=== PATIENT | female | born 1965 | race Caucasian/White ===

== ENCOUNTER 2017-01-03 12:19 | Emergency (ER) | payer OTHER ==
[~2017-01-03] VITALS: Ht 154.9 cm; Wt 86.2 kg
[~2017-01-03 12:19] MED LIST: ATORVASTATIN CA40 MG PO; CIPRO500 M1 PO; CIPRODEX 0.3%-7.5 ML OTIC; CLONAZEPAM1 MG PO; FLEXERIL10 MG PO; FLUOXETINE HCL40 M1 PO; HYDROCODONE BIT1 T13 PO; LEVOTHYROXINE125 MCG PO; LIOTHYRONINE S25 MCG PO; PERCOCET 325 MG1 TA2 PO; PYRIDIUM100 M1 PO; ZITHROMAX250 M2 PO
[2017-01-03 12:31] VITALS: BP 134/96
[2017-01-03] MEDS ORDERED: CLONAZEPAM2 M2 PO (12:40)
--- NOTE | 2017-01-03 12:41 | ED GENERAL ADULT ---
History of Present Illness General Chief Complaint: General Adult Stated Complaint: MEDICATION REFILL Source: patient Exam Limitations: no limitations Vital Signs & Intake/Output Vital Signs & Intake/Output Vital Signs Date Time Temp Pulse Resp B/P Pulse O2 O2 Flow FiO2 Ox Delivery Rate 01/03 1231 134/96 01/03 1229 96.5 94 20 158/100 98 Room Air Room Air Allergies Coded Allergies: NO KNOWN ALLERGIES (07/14/16) No Known Drug Allergies (07/14/16) Reconcile Medications Atorvastatin Calcium (Lipitor) 40 MG TABLET 1 TAB PO DAILY CHOLESTEROL ( Reported) Azithromycin (Zithromax) 250 MG TABLET 1 DP PO AD rash 2 the first day followed by 1 for days 2-5 Clonazepam 1 MG TABLET 1 TAB PO QPM PRN ANXIETY (Reported) Clonazepam 2 MG TABLET 0.5 TAB PO TID ANXIETY CYCLOBENZAPRINE HCL (Flexeril) 10 MG TABLET 1 TAB PO TID MUSCLE SPASM Fluoxetine HCl 40 MG CAPSULE 1 CAP PO QAM MENTAL HEALTH (Reported) Levothyroxine Sodium 125 MCG TABLET 1 TAB PO DAILY AC THYROID (Reported) Liothyronine Sodium 25 MCG TABLET 1 TAB PO DAILY THYROID (Reported) OXYCODONE HCL/ACETAMINOPHEN (Percocet 5-325 MG Tablet) 325 MG/5 MG TAB 1-2 TAB PO Q4-6 PRN PRN PAIN Triage Note: PT TO ED S/P "CALLED MY DR, DR MAYFIELD FOR MY CLONAZAPAM 1MG 3 TIMES DAILY, THEY GAVE MY NEW MEDS BUT THEY MADE ME CRAZY SO I CALLED THEM BACK AND THEY SENT ME HERE". Triage Nurses Notes Reviewed? yes Onset: Abrupt Duration: day(s):, constant Timing: recent history HPI: 51-year-old female comes into emergency room for a refill on her clonazepam. Patient reports that she was taken off of this medication abruptly by her primary care doctor who told her she he can no longer prescribe the medication. Patient was started on gabapentin and hydroxyzine. Patient reports that she's been feeling shaky and sweaty at times not feeling her normal self. Denies any SI or HI. Denies any chest pain or shortness of breath. Patient reports that she felt like her heart rate had decreased the other day. Patient reports that she's been on this medication for 16 years. Past History Travel History Traveled to [place] past 21 day No Medical History Any Pertinent Medical History? see below for history Neurological: NONE EENT: NONE Cardiovascular: NONE Respiratory: NONE Gastrointestinal: NONE Hepatic: NONE Renal: NONE Musculoskeletal: NONE Psychiatric: depression Endocrine: hypothyroidism Blood Disorders: NONE Cancer(s): NONE HOSPICE COMMUNITY LIAISON/Reproductive: NONE Surgical History Surgical History: non-contributory Psychosocial History What is your primary language Mohawk Tobacco Use: Never used ETOH Use: occasional use Illicit Drug Use: denies illicit drug use Family History Hx Contributory? No Review of Systems Review of Systems Constitutional: Reports: no symptoms. EENTM: Reports: no symptoms. Respiratory: Reports: no symptoms. Cardiovascular: Reports: no symptoms. GI: Reports: no symptoms. Genitourinary: Reports: no symptoms. Musculoskeletal: Reports: no symptoms. Skin: Reports: no symptoms. Neurological/Psychological: Reports: no symptoms. Hematologic/Endocrine: Reports: no symptoms. Immunologic/Allergic: Reports: no symptoms. All Other Systems: Reviewed and Negative Physical Exam Physical Exam General Appearance: well developed/nourished, no apparent distress, alert, awake Head: atraumatic, normal appearance Eyes: Bilateral: normal appearance, EOMI. Ears, Nose, Throat: normal pharynx, normal ENT inspection Neck: normal inspection, full range of motion Respiratory: normal breath sounds, no respiratory distress Cardiovascular: regular rate/rhythm Back: normal inspection Extremities: normal inspection, normal range of motion Neurologic/Psych: awake, alert, oriented x 3, normal gait, normal mood/affect Skin: intact, normal color Core Measures ACS in differential dx? No CVA/TIA Diagnosis: No Severe Sepsis Present: No Septic Shock Present: No Progress Differential Diagnoses I considered the following diagnoses in my evaluation of the patient: Benzodiazepine withdrawal, anxiety, depression, bipolar, cardiac arrhythmia, Plan of Care: 01/03/2017 12:50:33 PM Patient was offered further evaluation with EKG and blood work but declined. Patient just wants a refill on her medication. Symptoms are likely related to abrupt discontinuation of her benzodiazepines or could be medication side effect from the gabapentin or hydroxyzine. Exam was within normal limits. Patient clinically looks well. Nontoxic-appearing upon discharge. Patient does not want to do any further evaluation at this time is just here for medication refill. Initial ED EKG: none Departure Departure Disposition: HOME OR SELF CARE Condition: Stable Clinical Impression Primary Impression: Medication refill Referrals: ARIANA LOAIZA,MARIO ALBERTO Doran (PCP/Family) Additional Instructions: Take clonazepam as prescribed. Follow-up with your primary care doctor. Follow -up with new psychiatrist. Return if any other concerns worsening symptoms. Please go over all results of today's visit with your primary care doctor. Contact your primary care doctor to let them know you were here in the emergency room. There may be nonspecific findings which may not be related to your visit today here in the emergency room but may require further evaluation and chronic monitoring by your primary care doctor. If you had a laceration today the chance of foreign body always remains. You should follow-up with your primary care doctor for recheck in 3-5 days for a wound check. If you had an x-ray done there is a chance that a fracture could have been missed on initial read and you should follow-up with your primary care doctor for repeat x-rays if symptoms persist. If your blood pressure was elevated here in the emergency room please have rechecked by her primary care doctor within the next 48 hours by your primary care doctor. If you were prescribed a narcotic here in the emergency room or any type of controlled substances you're not allowed to drive while taking this medication or operate any type of heavy machinery. Narcotics can make you feel lightheaded dizziness nausea and can cause constipation. You may need to pick up driver a stool softener. Thank you for choosing [facility] emergency room. Please return to the emergency room immediately if you have any other concerns worsening of symptoms. Departure Forms: Customer Survey General Discharge Information Prescriptions: Current Visit Scripts Clonazepam 0.5 TAB PO TID #15 TAB Critical Care Note Critical Care Note Critical Care Time: non-applicable
== END 2017-01-03 12:49 ==
LOC: ERH 12:19
DX: Z76.0 Encounter for issue of repeat prescription (principal)
CPT/HCPCS: 99281

== ENCOUNTER 2017-01-15 13:24 | Emergency (ER) | payer OTHER ==
[~2017-01-15] VITALS: Ht 154.9 cm; Wt 86.2 kg
[~2017-01-15 13:24] MED LIST changes: +CLONAZEPAM2 M2 PO
[2017-01-15 13:26] VITALS: BP 155/91
--- NOTE | 2017-01-15 13:31 | ED GENERAL ADULT ---
History of Present Illness General Chief Complaint: General Adult Stated Complaint: MED REFILL Source: patient, old records Exam Limitations: no limitations Vital Signs & Intake/Output Vital Signs & Intake/Output Vital Signs Date Time Temp Pulse Resp B/P Pulse O2 O2 Flow FiO2 Ox Delivery Rate 01/15 1326 96.1 97 16 155/91 98 Room Air Allergies Coded Allergies: NO KNOWN ALLERGIES (07/14/16) No Known Drug Allergies (07/14/16) Reconcile Medications Atorvastatin Calcium (Lipitor) 40 MG TABLET 1 TAB PO DAILY CHOLESTEROL ( Reported) Azithromycin (Zithromax) 250 MG TABLET 1 DP PO AD rash 2 the first day followed by 1 for days 2-5 Clonazepam 1 MG TABLET 1 TAB PO QPM PRN ANXIETY (Reported) Clonazepam 2 MG TABLET 0.5 TAB PO TID ANXIETY Clonazepam 1 MG TABLET 1 TAB PO Q12 PRN anxiety CYCLOBENZAPRINE HCL (Flexeril) 10 MG TABLET 1 TAB PO TID MUSCLE SPASM Fluoxetine HCl 40 MG CAPSULE 1 CAP PO QAM MENTAL HEALTH (Reported) Levothyroxine Sodium 125 MCG TABLET 1 TAB PO DAILY AC THYROID (Reported) Liothyronine Sodium 25 MCG TABLET 1 TAB PO DAILY THYROID (Reported) OXYCODONE HCL/ACETAMINOPHEN (Percocet 5-325 MG Tablet) 325 MG/5 MG TAB 1-2 TAB PO Q4-6 PRN PRN PAIN Triage Note: 51 Y/O FEMALE REQUESTING REFILL OF CLONAZEPAM 2MG. STATES SHE HAS F/U WITH PSYCH ON 01/21/17. Triage Nurses Notes Reviewed? yes HPI: Patient is a 51-year-old female presents requesting a refill of her clonazepam. Patient reports that she had been on clonazepam for approximately 17 years was initially receiving the prescription from a [employer] and service director then was receiving the prescription from her primary care physician. Last month she called her primary doctor for her refill and was told that they could no longer write the prescription for her. Patient was tried on 4 different medications but reports that she was feeling worse with feeling of heart palpitations, increasing anxiety, restlessness. Patient was unsure if she was going through withdrawal or having medication side effects. Patient was seen in the emergency department approximately 2 weeks ago and prescribed 2 mg tabs of clonazepam and instructed to take half a tab 3 times a day as needed for anxiety. Patient reports this helped her symptoms. Patient has a follow-up appointment with Dr. Caldera on January 21 for intake for psychiatric care. Past History Travel History Traveled to [place] past 21 day No Medical History Any Pertinent Medical History? see below for history Neurological: NONE EENT: NONE Cardiovascular: NONE Respiratory: NONE Gastrointestinal: NONE Hepatic: NONE Renal: NONE Musculoskeletal: NONE Psychiatric: anxiety, depression Endocrine: hypothyroidism Blood Disorders: NONE Cancer(s): NONE PHARM SPEC/Reproductive: NONE Surgical History Surgical History: non-contributory Psychosocial History What is your primary language Kiswahili Tobacco Use: Quit >30 days ago Family History Hx Contributory? No Review of Systems Review of Systems Constitutional: Reports: no symptoms. Cardiovascular: Reports: no symptoms. GI: Reports: no symptoms. Neurological/Psychological: Reports: see HPI, anxiety. Hematologic/Endocrine: Reports: no symptoms. Immunologic/Allergic: Reports: no symptoms. Physical Exam Physical Exam General Appearance: well developed/nourished, alert, awake Head: atraumatic, normal appearance Eyes: Bilateral: normal appearance, PERRL, EOMI. Ears, Nose, Throat: normal pharynx, normal ENT inspection, hearing grossly normal Neck: normal inspection, supple, full range of motion Respiratory: normal breath sounds, no respiratory distress, lungs clear Cardiovascular: regular rate/rhythm Back: normal range of motion Neurologic/Psych: no motor/sensory deficits, awake, alert, oriented x 3, normal gait Skin: intact, normal color, warm/dry Core Measures ACS in differential dx? No CVA/TIA Diagnosis: No Severe Sepsis Present: No Septic Shock Present: No Progress Differential Diagnoses I considered the following diagnoses in my evaluation of the patient: anxiety, depression, drug seeking Plan of Care: Reviewed CTPMP: patient was chronically being prescribed 1mg Clonazepam tabs, 60 tabs per month. Patient reported to me that she was on Clonazepam 3 times a day. Will provide prescription for 1mg twice a day for 10 days while patient is awaiting intake to psychiatry Initial ED EKG: none Departure Departure Time of Disposition: 1344 Disposition: HOME OR SELF CARE Condition: Stable Clinical Impression Primary Impression: Medication refill Referrals: ARIANA LOAIZA,MARIO ALBERTO Doran (PCP/Family) Additional Instructions: Follow up with Dr. Caldera on January 21 for your intake appointment as previously scheduled. Return to the ER if worsening of symptoms. Departure Forms: Customer Survey General Discharge Information Prescriptions: Current Visit Scripts Clonazepam 1 TAB PO Q12 PRN anxiety #20 TAB Critical Care Note Critical Care Note Critical Care Time: non-applicable
[2017-01-15] MEDS ORDERED: CLONAZEPAM1 M2 PO (13:45)
== END 2017-01-15 14:06 ==
LOC: ERH 13:24
DX: Z76.0 Encounter for issue of repeat prescription (principal); F41.8 Other specified anxiety disorders
CPT/HCPCS: 99281

== ENCOUNTER 2018-02-09 19:27 | Emergency (ER) | payer OTHER ==
[~2018-02-09] VITALS: Ht 157.5 cm; Wt 81.6 kg
[~2018-02-09 19:27] MED LIST changes: +CLONAZEPAM1 M2 PO
--- NOTE | 2018-02-09 19:48 | ED SKIN/ALLERGY COMPLAINT ---
History of Present Illness General Chief Complaint: Animal/Insect Bite Stated Complaint: PT HAS A TICK HEAD IN HER STOMACH Source: patient Exam Limitations: no limitations Vital Signs & Intake/Output Vital Signs & Intake/Output Vital Signs Date Time Temp Pulse Resp B/P B/P Pulse O2 O2 Flow FiO2 Mean Ox Delivery Rate 02/10 2112 98.0 91 18 99 Room Air 02/10 2104 175/93 02/09 2018 180/110 02/09 1949 98.1 90 16 180/110 97 Room Air Allergies Coded Allergies: No Known Allergies (02/09/18) Reconcile Medications Atorvastatin Calcium (Lipitor) 40 MG TABLET 1 TAB PO DAILY CHOLESTEROL ( Reported) Azithromycin (Zithromax) 250 MG TABLET 1 DP PO AD rash 2 the first day followed by 1 for days 2-5 Clonazepam 1 MG TABLET 1 TAB PO QPM PRN ANXIETY (Reported) Clonazepam 2 MG TABLET 0.5 TAB PO TID ANXIETY Clonazepam 1 MG TABLET 1 TAB PO Q12 PRN anxiety CYCLOBENZAPRINE HCL (Flexeril) 10 MG TABLET 1 TAB PO TID MUSCLE SPASM Fluoxetine HCl 40 MG CAPSULE 1 CAP PO QAM MENTAL HEALTH (Reported) Levothyroxine Sodium 125 MCG TABLET 1 TAB PO DAILY AC THYROID (Reported) Liothyronine Sodium 25 MCG TABLET 1 TAB PO DAILY THYROID (Reported) Losartan Potassium (Cozaar) (Unknown Strength) TABLET (Unknown Dose) HTN ( Reported) OXYCODONE HCL/ACETAMINOPHEN (Percocet 5-325 MG Tablet) 325 MG/5 MG TAB 1-2 TAB PO Q4-6 PRN PRN PAIN Triage Note: PT STATES THAT SHE HAS A TICK IN HER STOMACH. [facility]OWN [facility] AT [facility] TO EXAMINE PT. Triage Nurses Notes Reviewed? yes Onset: Gradual Duration: constant Timing: single episode today Severity: mild Severity Numbers: 3 HPI: Patient is a 52-year-old female with past medical history of hypertension who is compliant with all certain 50 mg once a day taken earlier today who presents emergent with concerns of a noted tick to the left anterior torso region where a family are pulled also tick out however patient is concerned of retained foreign body to the skin. Patient does state that she has mild localized erythema to the tick bite region however denies any other symptoms (Shaan Shah) Past History Travel History Traveled to [place] past 21 day No Medical History Any Pertinent Medical History? see below for history Neurological: NONE EENT: NONE Cardiovascular: NONE Respiratory: NONE Gastrointestinal: NONE Hepatic: NONE Renal: NONE Musculoskeletal: NONE Psychiatric: anxiety, depression Endocrine: hypothyroidism Blood Disorders: NONE Cancer(s): NONE REAL ESTATE PARALEGAL/Reproductive: NONE Surgical History Surgical History: non-contributory Psychosocial History What is your primary language Frisian Tobacco Use: Never used Family History Hx Contributory? No (Shaan Shah) Review of Systems Review of Systems Constitutional: Reports: no symptoms. EENTM: Reports: no symptoms. Respiratory: Reports: no symptoms. Cardiovascular: Reports: no symptoms. GI: Reports: no symptoms. Genitourinary: Reports: no symptoms. Musculoskeletal: Reports: no symptoms. Skin: Reports: see HPI. Neurological/Psychological: Reports: no symptoms. Hematologic/Endocrine: Reports: no symptoms. Immunologic/Allergic: Reports: no symptoms. All Other Systems: Reviewed and Negative (Shaan Shah) Physical Exam Physical Exam General Appearance: no apparent distress, alert, obese Head: atraumatic Eyes: Bilateral: normal appearance, PERRL. Ears, Nose, Throat: hearing grossly normal Neck: normal inspection Respiratory: no respiratory distress Gastrointestinal: normal bowel sounds, soft Neurologic/Psych: no motor/sensory deficits, awake, alert, oriented x 3 Diagram Body: 1) NOTED 3 MM CIRCULAR ERYTHEMA WITH NOTED BLACK 1 MM SPECK (Shaan Shah) Progress Differential Diagnosis: abscess/cellulitis, allergic reaction, anaphylaxis, angioedema, contact dermatitis, lyme disease, meningitis/sepsis, piyriasis rosea , scarlet fever, urticaria Plan of Care: Current Medications Sig/Young Start time Last Medication Dose Stop Time Status Admin Losartan Potassium 50 MG ONCE ONE 02/10 2000 UNVr (Cozaar) 02/09 2001 Doxycycline Hyclate 200 MG ONCE ONE 02/09 1945 UNVr (Vibramycin) 02/09 1946 No signs of erythema migrans at this time, to the tick bite site used chlorhexidine pad and which choosing forceps I was able to remove the black speck noted on physical exam, I then used chlorhexidine again and put bacitracin bandage on the site, patient does note to have elevated blood pressure in the emergency room where she was administered 50 mg of losartan Patient will be reevaluated for improvement of her blood pressure held for no signs of end organ damage at this time. The pressure had improved after losartan upon discharge patient looks well now per distress and strongly advised patient to follow up with Dr. LANE HER primary care doctor tomorrow (Shaan Shah) Departure Departure Disposition: HOME OR SELF CARE Condition: Stable Clinical Impression Primary Impression: Tick bite Secondary Impressions: Hypertension Referrals: Alva LOAIZA,Bhavik Doran (PCP/Family) Additional Instructions: As discussed follow-up tomorrow with primary care doctor for medication reconciliation and for further evaluation of your blood pressure, if symptoms worsen to the bite site such as signs of infection return to emergency room immediately. Departure Forms: Customer Survey General Discharge Information (Shaan Shah) PA/JUMBO OPERATOR Co-Sign Statement Statement: ED Attending supervision documentation- [x] I saw and evaluated the patient. I have also reviewed all the pertinent lab results and diagnostic results. I agree with the findings and the plan of care as documented in the PA's/JUMBO OPERATOR's documentation. [] I have reviewed the ED Record and agree with the PA's/JUMBO OPERATOR's documentation. [] Additions or exceptions (if any) to the PAs/JUMBO OPERATOR's note and plan are summarized below: [] (Ga Dodd DO
[2018-02-09] MEDS ORDERED: COZAAR50 M1 (19:51)
[2018-02-09 21:04] VITALS: BP 175/93
== END 2018-02-09 21:13 ==
LOC: ERH 19:27
DX: S20.362A Insect bite (nonvenomous) of left front wall of thorax, initial encounter (principal); I10 Essential (primary) hypertension; W57.XXXA Bitten or stung by nonvenomous insect and other nonvenomous arthropods, initial encounter; Y92.9 Unspecified place or not applicable; Y93.9 Activity, unspecified